=== PATIENT | male | born 1990 | race Caucasian/White ===

== ENCOUNTER 2020-02-13 04:05 | Emergency (ER) | payer OTHER ==
[~2020-02-13] VITALS: Ht 180 cm; Wt 102.0 kg
[~2020-02-13 04:05] MED LIST: CLIN300C3 PO; PRD5T PO
--- OUTSIDE RECORDS SUMMARY | 2020-02-13 04:16 | XMS REPORT | Continuity of Care Document ---
Author Organization Unknown Address Unknown Phone Unavailable Allergies Active Description Code Type Severity Reaction Onset Reported/Identified Relationship to Patient Clinical Status Yes No Known Drug Allergies [id number] Drug Allergy Unknown N/A 01/30/2012 Medications There is no data. Problems There is no data. Procedures There is no data. Results There is no data. Encounters ACCT No. Visit Date/Time Discharge Status Pt. Type Provider Facility Loc./Unit Complaint [id number] 02/13/2020 04:12:[address] Emergency OSCAR FITZGERALD, TIA Cooper [facility] ER RT THUMB LAC
[2020-02-13] MEDS ORDERED: LIDOCAINE 1% INJ 20 ML 20 ML VIAL INJ ONE (04:30)
[2020-02-13] MEDS ORDERED: TETANUS,DIPTH,PERTUSS P/F (BOOSTRIX) 0.5 ML VIAL IM ONE (04:30)
[2020-02-13 04:31] VITALS: BP 128/93
--- NOTE | 2020-02-13 04:37 | ED Upper Extremity ---
General Stated Complaint: RT THUMB LAC Source: patient Exam Limitations: no limitations History of Present Illness Date Seen by Provider: Feb 13, 2020 Time Seen by Provider: 04:25 Initial Comments Here with report of laceration to the right thumb on the dorsum over the IP joint. Laceration is a flap. Occurred while shoveling at work. States the shovel got caught and his hand forward and got cut on a piece of sharp material. Last tetanus was about 7 years ago. Denies other injury. Retains full range of motion and sensation. Onset: just prior to arrival (approximately an hour ago.) Severity: mild Pain/Injury Location: right thumb Method of Injury: incised Modifying Factors: Worse With Movement; Improves With Rest Allergies and Home Medications Allergies Coded Allergies: No Known Drug Allergies (Unverified , 01/30/12) Home Medications Clindamycin Hcl 300 Mg Capsule, 1 EACH PO QID FOR INFECTION Prescribed by: GARRETT ISLAS on 01/30/12233 Prednisone 5 Mg Tab, 5 MG PO UD TAKE 12 PILLS DAY 1, THEN DECREASE BY 1 PILL A DAY UNTIL GONE FOR RASH Prescribed by: GARRETT ISLAS on 01/30/12233 Patient Home Medication List Home Medication List Reviewed: Yes Review of Systems Constitutional: no symptoms reported Respiratory: no symptoms reported Cardiovascular: no symptoms reported Skin: see HPI; No change in color; lesions (laceration) Psychiatric/Neurological: No Symptoms Reported Past Jhuntad-Jdfdje-Mcybvp Hx Past Med/Social Hx: Reviewed Nursing Past Med/Soc Hx Patient Social History Alcohol Use: Occasionally Uses Recreational Drug Use: No Smoking Status: Current Everyday Smoker Recent Foreign Travel: No Contact w/Someone Who Travel: No Immunizations Up To Date Date of Influenza Vaccine: Apr 07, 2011 Past Medical History Surgeries: No Respiratory: No Cardiac: No Family Medical History Reviewed Nursing Family Hx Physical Exam Vital Signs Vital Signs - First Documented 02/13/20 04:31 Temp 36.9 Pulse 89 Resp 17 B/P (MAP) 128/93 (105) Pulse Ox 98 O2 Delivery Room Air Capillary Refill : Height, Weight, BMI Height: '" Weight: lbs. oz. kg; BMI Method:Stated General Appearance: WD/WN, no apparent distress Cardiovascular: regular rate, rhythm, no murmur Respiratory: lungs clear, normal breath sounds Hand: Right, laceration (dorsum of right thumb with 2.5 cm flap laceration. Bleeding controlled.) Neurologic/Psychiatric: alert, oriented x 3 Skin: warm/dry, other (laceration as above) Procedures/Interventions Wound Location: Upper Extremities Other Wound Location Right thumb Wound Length (cm): 2.5 Wound's Depth, Shape: flap Wound Explored: contaminated Irrigated w/ Saline (ccs): 50 Betadine Prep?: Yes Anesthesia: 1% Lidocaine Volume Anesthetic (ccs): 4 Wound Debrided: minimal Suture: Prolene Suture Size: 5-0 Number of Sutures: 5 Layer Closure?: 1 Number Deep Layer Sutures: 0 Sterile Dressing Applied?: Yes Progress Betadine prep. Anesthetized with 4 mL of lidocaine locally. Cleaned with copious saline and scrubbing. Closed with simple interrupted sutures. Tolerated procedure well with no complications. Antibiotic ointment and bulky dressing applied by nursing. Progress/Results/Core Measures Results/Orders My Orders Orders - TIA MOORE MD Dipht,Pertuss(Acell),Tet Adult (Boostrix (02/13/20 04:30) Lidocaine 1% Inj 20 Ml (Xylocaine 1% Inj (02/13/20 04:30) Medications Given in ED Current Medications Medications Dose Ordered Sig/Roman Route Start Time Stop Time Status Last Admin Dose Admin Diphtheria/ Tetanus/Acell Pertussis 0.5 ml ONCE ONCE IM 02/13/20 04:30 02/13/20 04:31 DC 02/13/20 04:40 0.5 ML Lidocaine HCl 20 ml ONCE ONCE INJ 02/13/20 04:30 02/13/20 04:31 DC 02/13/20 04:40 20 ML Vital Signs/I&O 02/13/20 04:31 Temp 36.9 Pulse 89 Resp 17 B/P (MAP) 128/93 (105) Pulse Ox 98 O2 Delivery Room Air Progress Progress Note : Progress Note Seen and evaluated. Wound repaired after copious cleaning. Tolerated procedure well with no complications. Discharged home with return precautions. Patient verbalize understanding instructions and agreement with plan. Departure Impression Primary Impression: Laceration of right thumb Qualified Codes: S61.011A - Laceration without foreign body of right thumb without damage to nail, initial encounter Disposition: 01 HOME, SELF-CARE Condition: Improved Departure-Patient Inst. Decision time for Depature: 04:35 Referrals: STONE GILMAN MD (PCP/Family) Primary Care Physician Patient Instructions: Laceration Repair With Stitches (DC) Add. Discharge Instructions: Dressing in place for 2 days and then you may remove period use antibiotic ointment and bandage or dressing after that for the next 4-5 days and then as needed. Keep wound clean and dry. You should limit movement of thumb until wound heals over the next 7-10 days. Sutures out in 7-10 days. Return here for suture removal. Return for worse pain, red streaks up the hand, foul-smelling drainage, fever or other concerns as needed. TIA MOORE MD Feb 13, 2020 04:37
== END 2020-02-13 05:09 | disposition home or self-care (01) ==
LOC: EDUNIT# 04:05 → ER 04:12
DX: S61.011A Laceration without foreign body of right thumb without damage to nail, initial encounter (principal); F17.200 Nicotine dependence, unspecified, uncomplicated; Z23 Encounter for immunization; Z79.52 Long term (current) use of systemic steroids; W27.8XXA Contact with other nonpowered hand tool, initial encounter; Y92.59 Other trade areas as the place of occurrence of the external cause; Y99.0 Civilian activity done for income or pay
CPT/HCPCS: 90715